=== PATIENT | female | born 1985 | race Caucasian/White ===

== ENCOUNTER 2017-07-22 17:27 | Emergency (ER) | payer MEDICAID ==
[~2017-07-22] VITALS: Ht 167.6 cm; Wt 54.4 kg
[2017-07-22 17:33] VITALS: BP 134/82; PULSE 108; RESP 18; TEMP 97.8; O2SAT 96
[2017-07-22] MEDS ORDERED: LORazepam 2 MG/ML VIAL IV PUSH ONE (19:00)
[2017-07-22] MEDS ORDERED: KETOROLAC TROMETHAMINE 30 MG/ML (IVP) VIAL IV PUSH ONE (19:00)
[2017-07-22 19:05] VITALS: BP 141/89; PULSE 92; RESP 18; O2SAT 99
--- NOTE | 2017-07-22 19:13 | PD ---
HPI Chief Complaint: Pain: Acute or Chronic Time Seen by Provider: 19:00 Travel History International Travel<30 days: No Contact w/Intl Traveler<30days: No Traveled to known affect area: No History of Present Illness HPI 31-year-old white female presents emergency department with complaints of neck pain and stiffness for the past week. She states that she has had similar symptoms in the past. Patient has had a history of malignant melanoma. She states that back in 2009 she had her primary occurrence and recurrence back in 2010. Patient had primary excision of her cancer followed by excision of lymph nodes in her right salivary glands. She had 6 months of IV interferon therapy and has been well since then. She states that she has had occasional episodes of right-sided neck pain and spasms since her surgery. She states that this is similar. She states that it is cramping and spasm in nature. Moderate intensity. Worse with bending and movement. Some relief with remaining still. She denies any recent illness. No trauma. She does not feel that this is symptoms that she relates to having her cancer in the past. Patient just moved to the area a few months ago from [place]. [facility] Past Medical History Narrative Medical Malignant melanoma Tetanus Vaccination: < 5 Years ?: Not LMP: 07/06/17 Past Surgical History Narrative Surgical Excision of malignant melanoma with lymph node dissection Other Surgery: Yes (MELANOMA REMOVED IN 2010 FROM NECK) Social History Alcohol Use: No Tobacco Use: No Substance Use: No Allergies-Medications (Allergen,Severity, Reaction): Coded Allergies: No Known Allergies (Unverified , 07/22/17) Review of Systems Except as stated in HPI: all other systems reviewed are Neg Physical Exam Narrative GENERAL: Well-developed, well-nourished in no apparent distress. Nontoxic appearing. HEAD: Normocephalic, atraumatic. EYES: Pupils equal round and reactive. Extraocular motions intact. No scleral icterus. No injection or drainage. ENT: Nose clear. Throat without erythema, tonsillar hypertrophy or exudate. Uvula midline. Airway patent. NECK: Trachea midline. Supple, bilateral para spinal tenderness with right sided spasm. Pain is along the trapezius into the rhomboid region right greater than left. Evidence of prior surgery. CARDIOVASCULAR: Regular rate and rhythm without murmurs, gallops, or rubs. RESPIRATORY: Clear to auscultation. Breath sounds equal bilaterally. No wheezes , rales, or rhonchi. GASTROINTESTINAL: Abdomen soft, non-tender, nondistended. No hepato-splenomegaly , or palpable masses. No guarding. EXTREMITIES: No clubbing, cyanosis, or edema. No joint tenderness. BACK: Nontender without deformity. No flank tenderness. NEUROLOGICAL: Awake, alert and oriented x 3 .Cranial nerves grossly intact. Motor and sensory grossly within normal limits. Normal speech. Data Data Last Documented VS Vital Signs Date Time Temp Pulse Resp B/P (MAP) Pulse Ox O2 Delivery O2 Flow Rate FiO2 07/22/17 19:31 100 18 127/74 (91) 100 Room Air 07/22/17 17:33 97.8 Orders Orders Lorazepam Inj (Ativan Inj) (07/22/17 19:00) Ketorolac Inj (Toradol Inj) (07/22/17 19:00) [facility] Medical Decision Making Medical Screen Exam Complete: Yes Emergency Medical Condition: Yes Medical Record Reviewed: Yes Differential Diagnosis Differential diagnosis: Recurrent cancer, spasm, infection Narrative Course IV access is obtained. Patient was given 1 mg of Ativan IV and Toradol 30 mg IV. The patient states that she is starting to feel better. She states the pain is improved. She would like to go home. This is acute neck spasm, neck pain Diagnosis Primary Impression: Acute neck spasm Additional Impression: Acute neck pain Referrals: [facility] 1 week Patient Instructions: Narcotic given in the ED, General Instructions Additional Instructions: Rest. Ice for the next 3 days followed by heat . [place], Flexeril and Voltaren. Follow-up with [facility] in 1 week. Follow-up with a primary care doctor in one week. Return to the ER for emergencies. Med/Other Pt SpecificInfo: Prescription(s) given Scripts Cyclobenzaprine (Flexeril) 10 Mg Tab 10 MG PO TID for Muscle Spasm, #30 TAB 0 Refills Prov: Dash Tse MD 07/22/[address] (Diclofenac Sodium DR) 75 Mg Tabdr 75 MG PO BID, #20 TAB 0 Refills Prov: Dash Tse MD 07/22/17 Hydrocodone-Acetaminophen ([place]) 5 Mg-325 Mg Tab 1 TAB PO Q6H Y for PAIN for 3 Days, #12 TAB 0 Refills Prov: Dash Tse MD 07/22/17 Condition: Stable Roberto Marino Jul 22, 2017 19:13
[2017-07-22 19:31] VITALS: BP 127/74; PULSE 100; RESP 18; O2SAT 100
[2017-07-22] MEDS ORDERED: DICL75TA PO (19:35)
[2017-07-22] MEDS ORDERED: CYCL10TA PO (19:35)
[2017-07-22] MEDS ORDERED: NORC5TAB PO (19:35)
== END 2017-07-22 19:51 | disposition home or self-care (01) ==
LOC: NEPD 17:27
DX: M62.838 Other muscle spasm (principal); M54.2 Cervicalgia; Z85.820 Personal history of malignant melanoma of skin
CPT/HCPCS: 96374; 96375; 99284; J1885; J2060